=== PATIENT | male | born 1980 | race Caucasian/White ===

== ENCOUNTER 2024-11-12 10:50 | Inpatient (IN) | payer OTHER ==
[2024-11-12 11:34] VITALS: BMI 26.8
[2024-11-12] MEDS ORDERED: BENZONATATE 200 MG CAPSULE PO PRN (12:04)
[2024-11-12] MEDS ORDERED: NICOTINE POLACRILEX 2 MG GUM BUC PRN (12:04)
[2024-11-12] MEDS ORDERED: DICYCLOMINE HCL 10 MG CAPSULE PO PRN (12:04)
[2024-11-12] MEDS ORDERED: IBUPROFEN 400 MG TABLET (FP) PO PRN (12:04)
[2024-11-12] MEDS ORDERED: BISMUTH SUBSALICYLATE 262 MG/15 ML BTL PO PRN (12:04)
[2024-11-12] MEDS ORDERED: MAGNESIUM HYDROX 2400MG/30ML ORAL SUSPENSION 30 ML CUP PO PRN (12:04)
[2024-11-12] MEDS ORDERED: POLYETHYLENE GLYCOL (HEALTHYLAX) 3350 17 GM PACKET PO PRN (12:04)
[2024-11-12] MEDS ORDERED: LOPERAMIDE HCL 2 MG CAPSULE PO PRN (12:04)
[2024-11-12] MEDS ORDERED: NALOXONE (NARCAN) HCL 4 MG/0.1 ML SPRAY NS PRN (12:04)
[2024-11-12] MEDS ORDERED: guaiFENesin 600 MG TABLET.ER (FP) PO PRN (12:04)
[2024-11-12] MEDS ORDERED: MAG HYDROX/AL HYDROX/SIMETH 30 ML UNIT-DOSE CUP PO PRN (12:04)
[2024-11-12] MEDS ORDERED: BENZOCAINE/MENTHOL (CHLORASEPTIC ) LOZENGE MM PRN (12:04)
[2024-11-12] MEDS ORDERED: cloNIDine HCL 0.1 MG TABLET ONE (12:12)
[2024-11-12] MEDS: cloNIDine HCL 0.1 MG TABLET PO ONE (12:14)
[2024-11-12] MEDS: hydrOXYzine PAMOATE 25 MG CAPSULE (FP) PO PRN (12:16)
[2024-11-12] MEDS ORDERED: hydrOXYzine PAMOATE 25 MG CAPSULE (FP) PO ONE (12:16)
[2024-11-12] MEDS ORDERED: chlordiazePOXIDE HCL 25 MG CAPSULE ONE (12:17)
[2024-11-12] MEDS: chlordiazePOXIDE HCL 25 MG CAPSULE PO PRN (12:18)
[2024-11-12] MEDS: chlordiazePOXIDE HCL 25 MG CAPSULE PO SCH (17:05)
[2024-11-12] MEDS: THIAMINE 100 MG TABLET PO SCH (22:24)
[2024-11-12] MEDS: MELATONIN 5 MG TABLETS PO SCH (22:24)
[2024-11-13] MEDS: NICOTINE 14 MG/24 HOURS TOPICAL PATCH TD SCH (10:50)
[2024-11-13] MEDS: PRENATAL VITAMINS W/ FOLIC ACID TABLET (FP) PO SCH (10:50)
[2024-11-13] MEDS: IBUPROFEN 600 MG TABLET (FP) PO PRN (11:09)
[2024-11-13 13:56] LABS: HEMATOCRIT 44.5 % (35.4-49); HEMOGLOBIN 15.2 GM/dL (11.7-16.9); MCH 36.4 pg (25.7-33.7); MCHC 34.1 g/dl (32.0-35.9); MEAN CELL VOLUME 106.7 fl (80-96); MEAN PLT VOLUME 7.7 fl (7.5-11.1); PLATELET COUNT 82 10^3/uL (134-434); RBC 4.17 M/mm3 (4.00-5.60); RDW 13.2 % (11.9-15.9); WHITE BLOOD COUNT 3.3 K/mm3 (4.0-10.0)
[2024-11-13 14:04] LABS: CALCIUM 9.6 mg/dL (8.5-10.1)
[2024-11-13 14:05] LABS: ALBUMIN 3.4 g/dl (3.4-5.0); BLOOD UREA NITROGEN 8.5 mg/dL (7-18)
[2024-11-13 14:10] LABS: BILIRUBIN,TOTAL 2.8 mg/dL (0.2-1); TOT PROT 6.7 g/dl (6.4-8.2)
[2024-11-13 14:13] LABS: CREATININE 0.9 mg/dL (0.55-1.3)
[2024-11-13] MEDS: POTASSIUM CHLORIDE ORAL LIQUID 20 MEQ/15 ML PO SCH (14:55)
[2024-11-13] MEDS: metoPROLOL SUCCINATE 25 MG TAB.SR.24H (FP) PO SCH (14:57)
[2024-11-14] MEDS: chlordiazePOXIDE HCL 25 MG CAPSULE PO SCH (05:26)
[2024-11-14] MEDS: METHOCARBAMOL 500 MG TABLET PO PRN (10:28)
[2024-11-14] MEDS: ACETAMINOPHEN 325 MG TABLET (FP) PO PRN (17:34)
[2024-11-15] MEDS ORDERED: chlordiazePOXIDE HCL 10 MG CAPSULE PO PRN
[2024-11-15] MEDS: chlordiazePOXIDE HCL 10 MG CAPSULE PO SCH (05:56)
[2024-11-15] MEDS: ONDANSETRON *ODT* 4 MG TABLET SL PRN (10:36)
[2024-11-15] MEDS: METOPROLOL TARTRATE 25 MG TABLET (FP) PO ONE ×2 (13:04→22:30)
[2024-11-16] MEDS: chlordiazePOXIDE HCL 10 MG CAPSULE PO SCH (05:52)
[2024-11-16] MEDS: METOPROLOL TARTRATE 25 MG TABLET (FP) PO SCH (10:21)
[2024-11-16] MEDS ORDERED: NALOXONE (NYS OPIOID OVERDOSE PROGRAM) 4 MG/0.1 ML SPRAY NS SCH (16:00)
[2024-11-16 18:41] VITALS: RESP 16
[2024-11-17] MEDS: chlordiazePOXIDE HCL 10 MG CAPSULE PO ONE (06:00)
[2024-11-17 09:06] VITALS: BP 114/78; PULSE 84; TEMP 98
[2024-11-17] MEDS: NALOXONE (NYS OPIOID OVERDOSE PROGRAM) 4 MG/0.1 ML SPRAY NS SCH (09:39)
== END 2024-11-17 10:11 | disposition home or self-care (01) | DRG 897 ==
LOC: YASAS 10:50 → Y6N 12:33
PROVIDERS: ADMIT Allergy & Immunology; ATTEND Family Medicine Addiction Medicine
PROC: HZ2ZZZZ Detoxification Services for Substance Abuse Treatment (ICD-10-PCS; principal; 2024-11-12)
DX: F10.230 Alcohol dependence with withdrawal, uncomplicated (principal); F12.10 Cannabis abuse, uncomplicated; F17.290 Nicotine dependence, other tobacco product, uncomplicated; F10.280 Alcohol dependence with alcohol-induced anxiety disorder; F10.282 Alcohol dependence with alcohol-induced sleep disorder; F32.A Depression, unspecified; E87.6 Hypokalemia
CPT/HCPCS: 36415; 80053; 80305; 80307; 82247; 84132; 85027; 86780; 93005; 93010; Q0162